=== PATIENT | male | born 1945 | race Caucasian/White ===

== ENCOUNTER → 2017-06-03 | Outpatient (CLI) | payer MEDICARE, BC ==
[~2017-06-03] MED LIST: CHOL10002 PO; CIPR500 PO; DIPH50 PO; GINKO BILOBA PO; HYDR1TAB94 PO; Multivitamin1 EAC1 PO; NEBI5 PO; PRED20 PO; SENN187 PO; SUPER B COMPLEX PO; TAMS.4ER PO; VITAMIN C PO
[2017-06-03 16:44] LABS: Creatinine, Urine Random 34.7 mg/dL (27.00-270.00)
[2017-06-03 16:47] LABS: Microalb/Creat Ratio UR, Rand 18.213 mg/g (0.000-30.000); Microalbumin, Random Urine 6.32 mg/L (0.000-20.000)
== END | disposition home or self-care (01) ==
LOC: LAB 15:22
PROVIDERS: Hospitalist
DX: I10 Essential (primary) hypertension (principal)
CPT/HCPCS: 82043; 82570

== ENCOUNTER → 2018-07-07 | Outpatient (CLI) | payer MEDICARE, BC | END | disposition home or self-care (01) | LOC: LAB SHORT 11:27 → PLD 11:27 | DX: D04.5 Carcinoma in situ of skin of trunk (principal) | CPT/HCPCS: 88305 ==

== ENCOUNTER → 2019-05-17 | Outpatient (CLI) | payer BC | END | disposition home or self-care (01) | LOC: LAB SHORT 17:49 → LAB 17:49 | DX: R31.9 Hematuria, unspecified (principal) | CPT/HCPCS: 87086 ==

== ENCOUNTER → 2022-06-25 | Outpatient (CLI) | payer MEDICARE, BC | END | disposition home or self-care (01) | LOC: LAB SHORT 11:00 → LAB 11:00 | DX: D48.5 Neoplasm of uncertain behavior of skin (principal) | CPT/HCPCS: 88305 ==

== ENCOUNTER 2022-07-24 06:08 | Day surgery (SDC) | payer MEDICARE, BC ==
[~2022-07-24] VITALS: Ht 190.5 cm; Wt 94.5 kg
[2022-07-24] MEDS ORDERED: NAPR220 PO (06:58)
[2022-07-24] MEDS ORDERED: LISI20 PO (06:58)
--- NOTE | 2022-07-24 07:53 | NUR ---
07/24/22 0753 JOSEPHINE MOODY 0.1MG OF EPI ADDED TO ROPIVACAINE 0.5% TO CREATE A LOCAL SOLUTION OF ROPIVACAINE 0.5% WITH EPI 1:200,000. LOCAL POURED ONTO STERILE FIELD FOR USE DURING CASE.
--- NOTE | 2022-07-24 10:40 | NUR ---
07/24/22 1040 Milton Muhammad PT REPORTED 5/10 PAIN AT TIME OF DISCHARGE, BUT HE DESCRIBED PAIN TOLERABLE AND EXPRESSED READINESS TO GO HOME.
== END 2022-07-24 10:20 | disposition home or self-care (01) ==
LOC: ORSCSDS 06:08
PROVIDERS: Orthopaedic Surgery
PROC: 0LQL0ZZ Repair Right Upper Leg Tendon, Open Approach (ICD-10-PCS; principal; 2022-07-24 07:30)
DX: S76.191D Other specified injury of right quadriceps muscle, fascia and tendon, subsequent encounter (principal); Z96.651 Presence of right artificial knee joint; I10 Essential (primary) hypertension; Z79.899 Other long term (current) drug therapy
CPT/HCPCS: A9270; J0171; J0690; J1100; J2405; J2704; J2795; J3010; J7120

== ENCOUNTER 2024-06-22 08:58 | Day surgery (SDC) | payer MEDICARE, BC ==
[~2024-06-22] VITALS: Ht 190.5 cm; Wt 102.0 kg
[~2024-06-22 08:58] MED LIST changes: +Balanced Salt Epinephrine Irrigation Solution 500 mL IR SCH; +C COMPLEX1000 M1 PO; +CALCIUM-MAGNES1 EA11 PO; +Diazepam 5 MG Tab PO PRN; +Diazepam 5 MG Tab PO SCH; +LISI20 PO; +Lidocaine HCl/Pf 1% 5 ML VIAL XX SCH; +MULTI-VITAMIN1 EAC2 PO; +Moxifloxacin HCL 0.5 MG/0.1 ML 0.4MLSYR RIGHTEYE SCH; +NAPR220 PO; +Ondansetron 4 MG SoluTab MM PRN; +PHENYLEPHRINE\\TROPICAMIDE\\TETRACAINE OPHTHALMIC DILATING SOLN RIGHTEYE PRN; +Povidone-Iodine 450 DROP/30 ML Solution ONE; +Povidone-Iodine 450 DROP/30 ML Solution RIGHTEYE SCH; +THERA-D2000 UNIT PO; +Tetracaine HCl/Pf 0.5% Opth Soln 4 ml ONE; +Triamcinolone Inj Susp 40 MG / ML 1ML Vial INJ SCH; +Triamcinolone Inj Susp 40 MG / ML 1ML Vial ONE
[2024-06-22] MEDS ORDERED: Diazepam 10 MG Tab ONE (09:38)
--- NOTE | 2024-06-22 09:50 | NUR ---
06/22/24 0950 ISAIAS ERAZO PT DECLINED VALIUM [id number] DR NOTIFIED. PT STATES THAT HE HAS NO MEDICATIONS
[2024-06-22] MEDS ORDERED: B COMPLEX WITH1 EACH PO (09:56)
--- NOTE | 2024-06-22 10:40 | NUR ---
06/22/[address] PT ARRIVES TO [facility], ON RA.
[2024-06-22 10:42] VITALS: BP 194/100
== END 2024-06-22 10:55 | disposition home or self-care (01) ==
LOC: ORSCSDS 08:58
PROVIDERS: Ophthalmology
PROC: 08RJ3JZ Replacement of Right Lens with Synthetic Substitute, Percutaneous Approach (ICD-10-PCS; principal; 2024-06-22 10:30)
DX: H25.813 Combined forms of age-related cataract, bilateral (principal); H52.201 Unspecified astigmatism, right eye; I10 Essential (primary) hypertension
CPT/HCPCS: A9270; J3301; V2632

== ENCOUNTER 2024-06-29 08:55 | Day surgery (SDC) | payer MEDICARE, BC ==
[~2024-06-29] VITALS: Ht 190.5 cm; Wt 101.6 kg
[~2024-06-29 08:55] MED LIST changes: +B COMPLEX WITH1 EACH PO; +Moxifloxacin HCL 0.5 MG/0.1 ML 0.4MLSYR LEFTEYE SCH; -Moxifloxacin HCL 0.5 MG/0.1 ML 0.4MLSYR RIGHTEYE SCH; +PHENYLEPHRINE\\TROPICAMIDE\\TETRACAINE OPHTHALMIC DILATING SOLN LEFTEYE PRN; -PHENYLEPHRINE\\TROPICAMIDE\\TETRACAINE OPHTHALMIC DILATING SOLN RIGHTEYE PRN; +Povidone-Iodine 450 DROP/30 ML Solution LEFTEYE SCH; -Povidone-Iodine 450 DROP/30 ML Solution RIGHTEYE SCH
[2024-06-29] MEDS ORDERED: Midazolam HCl 1MG / ML 2ML Vial ONE (10:17)
[2024-06-29 10:56] VITALS: BP 155/104
== END 2024-06-29 11:11 | disposition home or self-care (01) ==
LOC: ORSCSDS 08:55
PROVIDERS: Ophthalmology
PROC: 08RK3JZ Replacement of Left Lens with Synthetic Substitute, Percutaneous Approach (ICD-10-PCS; principal; 2024-06-29 10:30)
DX: H25.812 Combined forms of age-related cataract, left eye (principal); H52.202 Unspecified astigmatism, left eye; Z96.1 Presence of intraocular lens; Z79.899 Other long term (current) drug therapy
CPT/HCPCS: J2250; J3301; V2632